=== PATIENT | male | born 1975 | race Caucasian/White ===

== ENCOUNTER → 2019-06-12 | Outpatient (CLI) | payer BC ==
--- NOTE | 2019-06-13 07:40 | KCIC ---
Indication:Pain. TECHNIQUE: 3 views of the right foot COMPARISON:None FINDINGS: No acute fracture or dislocation. Very small anterior calcaneal spur noted. No significant soft tissue swelling. IMPRESSION: As above. Electronically signed by: Noah Harding DO (06/13/2019 7:37 AM) [facility]
--- NOTE | 2019-06-13 14:40 | KCIC ---
Examination: MRI of the right midfoot without contrast HISTORY: History of right foot pain COMPARISON: None available Technique: Multiplanar, multisequence MR imaging of the right midfoot were performed without contrast. FINDINGS: There is mild increased signal identified at the attachment of the plantar fascia to the inferior aspect of the calcaneus. The attachment of the anterior and posterior talofibular ligaments appear intact. Minimal amount of fluid identified about the posterior tibialis tendon likely mild tenosynovitis. There is mild amount of fluid identified about the peroneus longus tendon likely mild tenosynovitis with the mild increased T2 signal identified within the peroneus brevis tendon distal to the lateral malleolus could be mild tendinopathy. The attachment of the peroneus longus,. There is tendon grossly appears intact, however there is mild increased signal identified in the distal attachment of the peroneus longus tendon to the base of the first metatarsal likely secondary to injury. There is no obvious acute fracture identified. The Lisfranc ligament appears intact. The alignment of the tarsal bones, tarsometatarsal joints, tarsophalangeal joints grossly appears unremarkable. There is mild increased T2 signal identified in the soft tissue of the medial foot near the arch could be secondary to soft tissue injury. Fat is present within the sinus tarsi. IMPRESSION: 1. Mild tenosynovitis posterior tibialis tendon and peroneus longus tendon. 2. Increased T2 signal identified within the peroneus brevis tendon distal to the lateral malleolus could be mild tendinopathy. There is increased T2 signal identified at the distal attachment of the peroneus longus tendon could be secondary to injury. 3. Mild increased T2 signal identified in the soft tissue of the arch of the foot in the plantar aspect with secondary to soft tissue injury. 4. Mild increased T2 signal intensity attachment of the plantar fascia to the inferior aspect of the calcaneus, correlate for plantar fasciitis. Electronically signed by: Andrew Ayon MD (06/13/2019 2:37 PM) [id number]
== END | disposition home or self-care (01) ==
LOC: KCIC MRI 15:43
PROVIDERS: ATTEND Internal Medicine
DX: S93.691A Other sprain of right foot, initial encounter (principal); M77.31 Calcaneal spur, right foot; X58.XXXA Exposure to other specified factors, initial encounter; Y93.89 Activity, other specified; Y92.89 Other specified places as the place of occurrence of the external cause; Y99.8 Other external cause status
CPT/HCPCS: 73630; 73718